=== PATIENT | male | born 1995 | race Caucasian/White ===

== ENCOUNTER 2018-12-25 00:37 | Emergency (ER) | payer BC ==
[2018-12-25] MEDS ORDERED: Diphtheria,Pertussis(Acell),Tetanus Vaccine 0.5 ML Syringe IM ONE (00:45)
--- NOTE | 2018-12-25 00:47 | EDM.PDOC ---
ED HPI GENERAL MEDICAL PROBLEM - General Chief Complaint: Skin Complaint Stated Complaint: CUT ON LT HAND Time Seen by Provider: 12/25/18 00:42 - History of Present Illness INITIAL COMMENTS - FREE TEXT/NARRATIVE: HISTORY AND PHYSICAL: History of present illness: The patient is a 23-year-old male with no systemic issues and was unsure of his last tetanus shot and presents with complaints of laceration to the dorsal aspect of the base of his left thumb that occurred about 4 hours ago. The patient said he was working on an automobile and pulled his hand out of a tight area and scraped the surface. Nothing fell or impacted the hand with the finger. Patient said he cleaned it out and put a lot of ointment on the area and he wasn't sure if he needed stitches so he waited. In talking with his friend, who is here with him, he thought he should be evaluated. He does not been bleeding since the initial event. He is able to move and range of motion at the thumb and has no other injuries. Review of systems: As per history of present illness and below otherwise all systems reviewed and negative. Past medical history: As per history of present illness and as reviewed below otherwise noncontributory. Surgical history: As per history of present illness and as reviewed below otherwise noncontributory. Social history: No reported history of drug or alcohol abuse. Family history: As per history of present illness and as reviewed below otherwise noncontributory. Physical exam: General: Well-developed well-nourished man who is nontoxic and vital signs were noted by me HEENT: Atraumatic, normocephalic,negative for conjunctival pallor or scleral icterus, mucous membranes moist, throat clear, neck supple, nontender, trachea midline. Lungs: Clear to auscultation, breath sounds equal bilaterally, chest nontender. Heart: S1S2, regular rate and rhythm no overt murmurs Abdomen: Soft, nondistended, nontender. NABS Pelvis: Deferred Genitourinary: Deferred. Rectal: Deferred. Extremities: Atraumatic, with full range of motion of all extremities with the exception of the dorsal aspect of the left hand near the first MCP. In this region there is a 1.25 cm elliptical superficial laceration seen which is nonbleeding and has no surrounding erythema or soft tissue swelling. There are no palpable bony deformities of the thumb or the hand on this left side and no defects are appreciated on palpation. Neurovascular unremarkable. Neuro: Awake, alert, oriented. Cranial nerves II through XII unremarkable. Cerebellum unremarkable. Motor and sensory unremarkable throughout. Exam nonfocal. Diagnostics: [] Therapeutics: Tdap, wound care 1% lidocaine bacitracin and dressing Procedure note: After the wound was cleansed by nursing there is some separation that merits suture placement. This was discussed with the patient. 1 % lidocaine without epinephrine was placed in a local fashion and the wound was prepped and draped. The wound was explored and no foreign bodies were appreciated. A total number of # 3 sutures of 4-0 nylon were placed in a simple interrupted fashion and there were no complications. Patient tolerated the procedure well and a dressing and ointment was placed by nursing. Impression: Laceration of left hand Definitive disposition and diagnosis as appropriate pending reevaluation and review of above. - Related Data Allergies Allergy/AdvReac Type Severity Reaction Status Date / Time No Known Allergies Allergy Verified 12/25/18 00:46 Home Meds: Home Meds . [No Known Home Meds] 12/25/18 [History] ED ROS GENERAL - Review of Systems Review Of Systems: ROS reveals no pertinent complaints other than HPI. ED EXAM, SKIN/RASH Exam: See Below (See dictation) Course - Vital Signs Last Recorded V/S: Last Vital Signs Temp 36.7 C 12/25/18 00:43 Pulse 73 12/25/18 00:43 Resp BP 122/69 12/25/18 00:43 Pulse Ox 97 12/25/18 00:43 - Orders/Labs/Meds Orders: Active Orders 24 hr Category Date Time Status Communication Order [RC] STAT Care 12/25/18 00:45 Active Vaccines to be Administered [RC] PER UNIT ROUTINE Care 12/25/18 00:46 Active Meds: Medications Discontinued Medications Generic Name Dose Route Start Last Admin Trade Name Alexsanderq PRN Reason Stop Dose Admin Bacitracin 1 dose 12/25/18 01:01 Bacitracin Oint 1 Gm TOP 12/25/18 01:02 ONETIME ONE Diphtheria/Tetanus/Acell Pertussis 0.5 ml 12/25/18 00:45 Adacel IM 12/25/18 00:46 .ONCE ONE Lidocaine HCl 5 ml 12/25/18 01:00 Xylocaine-Mpf 1% INJECT 12/25/18 01:01 ONETIME ONE Departure - Departure Time of Disposition: 01:15 Disposition: Home, Self-Care 01 Condition: Good Clinical Impression: Laceration of left hand Qualifiers: Encounter type: initial encounter Foreign body presence: without foreign body Qualified Code(s): S61.412A - Laceration without foreign body of left hand, initial encounter - Discharge Information Referrals: PCP,None [Primary Care Provider] - Forms: ED Department Discharge Additional Instructions: The following information is given to patients seen in the emergency department who are being discharged to home. This information is to outline your options for follow-up care. We provide all patients seen in our emergency department with a follow-up referral. The need for follow-up, as well as the timing and circumstances, are variable depending upon the specifics of your emergency department visit. If you don't have a primary care physician on staff, we will provide you with a referral. We always advise you to contact your personal physician following an emergency department visit to inform them of the circumstance of the visit and for follow-up with them and/or the need for any referrals to a consulting specialist. The emergency department will also refer you to a specialist when appropriate. This referral assures that you have the opportunity for followup care with a specialist. All of these measure are taken in an effort to provide you with optimal care, which includes your followup. Under all circumstances we always encourage you to contact your private physician who remains a resource for coordinating your care. When calling for followup care, please make the office aware that this follow-up is from your recent emergency room visit. If for any reason you are refused follow-up, please contact the [facility] emergency department at and ask to speak to the emergency department charge nurse. [facility] Primary care- [place] [address] Remove the dressing that was placed on by nursing tomorrow evening and cleanse with mild soap and water pat dry and apply bacitracin or Neosporin. After 3 days please stop ointment placement. Sutures should be removed in 7 days here in the ED or with your provider in the clinic. Return to ER sooner as needed and as discussed. Please do not place Band-Aids over the area as this will delay wound healing and if you must keep the area covered for work or other reasons please use a gauze dressing - My Orders Last 24 Hours: My Active Orders 12/25/18 00:45 Communication Order [RC] STAT 12/25/18 00:46 Vaccines to be Administered [RC] PER UNIT ROUTINE - Assessment/Plan Last 24 Hours: My Active Orders 12/25/18 00:45 Communication Order [RC] STAT 12/25/18 00:46 Vaccines to be Administered [RC] PER UNIT ROUTINE
[2018-12-25] MEDS ORDERED: Bacitracin Oint 1 GM U/D Packet TOP ONE (01:01)
== END 2018-12-25 01:25 | disposition home or self-care (01) ==
LOC: MW.ED 00:37
DX: S61.412A Laceration without foreign body of left hand, initial encounter (principal); Z23 Encounter for immunization; W31.89XA Contact with other specified machinery, initial encounter
CPT/HCPCS: 12001; 90471; 90715; 99282; J2001; 99283